=== PATIENT | male | born 2000 | race Caucasian/White ===

== ENCOUNTER 2024-03-26 20:36 | Emergency (ER) | payer OTHER, SELFPAY ==
[2024-03-26 20:53] VITALS: BP 125/60; PULSE 76; TEMP 36.8; O2SAT 99; BMI 25.1
--- NOTE | 2024-03-26 21:03 | XR_ITS ---
[address] [address] Patient Name: JAMES SOTO MRN: [id number] date: 2000 Sex: M Assigned Patient Location: ER Current Patient Location: Accession/Order Number: [id number] Exam Date: 03/26/2024 21:15 Report Date: 03/26/2024 22:05 At the request of: LISA ANTOINE Procedure: XR femur LT 2V EXAM: XR femur LT 2V HISTORY: contusion COMPARISON: None. FINDINGS/IMPRESSION: 1. No acute fracture or dislocation. 2. Normal alignment of the left hip joint. Normal alignment of the left knee joint. Electronically authenticated by: KARLY CASIANO Date: 03/26/2024 22:05
--- NOTE | 2024-03-26 21:10 | ED_ITS ---
HPI HPI - General Adult General Chief complaint: Extremity Injury, Lower Stated complaint: LOWER EXTREMITY INJURY-[facility] Time Seen by Provider: 03/26/24 20:50 Source: patient Mode of arrival: walk-in Limitations: no limitations History of Present Illness HPI narrative: 23-year-old male presents here with chief complaint of left posterior thigh ecchymosis. He was at work earlier today and hit by a wheelbarrow. Swelling and bruising is over the posterior thigh. He said initially upon injury he had small redness and then developed into a bruise. Injury occurred around 1245 at work. He presents here around 8:30 PM. He is alert and orient no acute distress Related Data Allergies Allergy/AdvReac Type Severity Reaction Status Date / Time No Known Drug Allergies Allergy Verified 03/26/24 20:57 Opioid HPI Opioid Management Most Recent Opioid Data: No Data to Display Review of Systems ROS Narrative All Systems are negative except as noted/marked.All systems reviewed and otherwise negative Exam Narrative Exam Narrative: Nurses note and vital signs reviewed and patient is not hypoxic. General: The patient appears well and in no apparent distress. Patient is resting comfortably on cart. Skin: Warm, dry, no pallor noted. contusion to post thigh left leg Head: Normocephalic, atraumatic Eye: Normal conjunctiva, no drainage, EOMI. PERRL Ears, Nose, Mouth, and Throat: oral mucosa is moist. Nares patent. Mouth without vesicles. Ear canals patent. Tm's without Erythema Cardiovascular: Regular Rate and Rhythm Musculoskeletal:no lower extremity weakness, no bulginging, contusion noted. The patient has no evidence of calf tenderness, no pitting edema, symmetrical pulses noted bilaterally Neurological: A&O x4, normal speech Psychiatric: Cooperative Constitutional Vital Signs, click to edit/add: Last Vital Signs Temp 98.2 F 03/26/24 20:53 Pulse 76 03/26/24 20:53 Resp 18 03/26/24 20:53 BP 125/60 03/26/24 20:53 Pulse Ox 99 03/26/24 20:53 O2 Del Method Room Air 03/26/24 20:53 Course Vital Signs Vital signs: Vital Signs Temperature 98.2 F 03/26/24 20:53 Pulse Rate 76 03/26/24 20:53 Respiratory Rate 18 03/26/24 20:53 Blood Pressure 125/60 03/26/24 20:53 Pulse Oximetry 99 03/26/24 20:53 Oxygen Delivery Method Room Air 03/26/24 20:53 Temperature 98.2 F 03/26/24 20:53 Pulse Rate 76 03/26/24 20:53 Respiratory Rate 18 03/26/24 20:53 Blood Pressure 125/60 03/26/24 20:53 Pulse Oximetry 99 03/26/24 20:53 Oxygen Delivery Method Room Air 03/26/24 20:53 Medical Decision Making MDM Narrative Medical decision making narrative: 23-year-old male who presented here with chief complaint of injury that he sustained while at work earlier today. Patient has soft tissue swelling consistent with bruising. Patient told to rest ice elevate tolerated pain using Tylenol Motrin. He will follow-up with Workmen's Comp. X-ray is currently pending. Once x-ray is back and negative patient will be able to be discharged home Differential Diagnosis Differential Diagnosis: ecchymosis, swelling, leg pain Medical Records Medical records reviewed: Yes I reviewed the patient's medical records Discharge Plan Discharge Stand Alone Forms: Portal Instructions Chief Complaint: Extremity Injury, Lower Clinical Impression: Contusion Patient Disposition: Home, Self-Care Time of Disposition Decision: 21:40 Condition: Good Print Language: Mauritanian Instructions: Contusion in Adults (ED), P.R.I.C.E. Treatment (ED) Additional Instructions: call occupational medicine at [place] for appointment Referrals: Physician,Non-Staff, [Primary Care Provider] - 1 week
== END 2024-03-26 21:55 | disposition home or self-care (01) ==
PROVIDERS: Emergency Provider Internal Medicine
DX: S70.12XA Contusion of left thigh, initial encounter (principal); W22.8XXA Striking against or struck by other objects, initial encounter
CPT/HCPCS: 73552; 99283